=== PATIENT | female | born 1965 | race Two or more races ===

== ENCOUNTER → 2019-12-13 | Outpatient (CLI) | payer OTHER ==
[~2019-12-13] MED LIST: AMLO-150 PO; ATOR20TA37 PO; ESTRADIOL; METF500T17 PO
[2019-12-13 12:30] LABS: BASOPHILS # (AUTO) 0.03 x10^3/uL (0-0.1); BASOPHILS % (AUTO) 0 % (0-1); EOSINOPHILS # (AUTO) 0.14 x10^3/uL (0-0.4); EOSINOPHILS % (AUTO) 2 % (1-7); LYMPHOCYTES # (AUTO) 2.86 x10^3/uL (1-3.4); LYMPHOCYTES % (AUTO) 42 % (22-44); MD NO; MEAN CORPUSCULAR HEMOGLOBIN 30.6 pg (27.0-34.8); MEAN CORPUSCULAR HGB CONC 33.7 g/dL (32.4-35.8); MEAN CORPUSCULAR VOLUME 90.7 fL (80-100); MEAN PLATELET VOLUME 8.2 fL (7.4-10.4); MONOCYTES # (AUTO) 0.38 x10^3/uL (0.2-0.8); MONOCYTES % (AUTO) 6 % (2-9); NEUTROPHILS # (AUTO) 3.46 x10^3/uL (1.8-6.8); NEUTROPHILS % (AUTO) 50 % (42-75); PLATELET COUNT 313 x10^3/uL (130-400); RED BLOOD COUNT 4.53 x10^6/uL (3.82-5.3); RED CELL DISTRIBUTION WIDTH 12.9 % (9.6-15.2)
[2019-12-13 12:39] LABS: CHLORIDE 107 mmol/L (98-107)
[2019-12-13 12:56] LABS: ALANINE AMINOTRANSFERASE 19 U/L (12-78); ALBUMIN 4.2 g/dL (3.4-5.0); ALKALINE PHOSPHATASE 71 U/L (45-117); ANION GAP 5 mmol/L (5-15); BILIRUBIN,TOTAL 0.8 mg/dL (0.2-1.0); CALCIUM 9.3 mg/dL (8.5-10.1); CREATININE 0.63 mg/dL (0.55-1.02); TOTAL PROTEIN 7.9 g/dL (6.4-8.2)
== END | disposition home or self-care (01) ==
LOC: STAR 10:13
PROVIDERS: ATTEND Orthopaedic Surgery
DX: Z01.818 Encounter for other preprocedural examination (principal); M17.12 Unilateral primary osteoarthritis, left knee
CPT/HCPCS: 36415; 80053; 85025; 87081; 93005

== ENCOUNTER 2019-12-22 09:49 | Observation (INO) | payer OTHER ==
[~2019-12-22] VITALS: Ht 149.9 cm; Wt 66.4 kg
[~2019-12-22 09:49] MED LIST changes: +ACETAMINOPHEN 650 MG/20.3 ML UDC PO PRN; +BISACODYL 10 MG SUPP PR PRN; +DIPHENHYDRAMINE 25 MG CAPSULE PO PRN; +HYDROcodone/APAP 5/325 TABLET PO PRN; +MAGNESIUM HYDROXIDE 8%, 30ML UDC PO PRN; +ONDANSETRON 2MG/ML, 2ML IV PRN; +ONDANSETRON 4 MG TABLET PO PRN; +OXYcodone IR 5MG TABLET PO PRN; +SENNA/DOCUSATE TABLET PO PRN; +ZOLPIDEM 5MG TABLET PO PRN
[2019-12-22] MEDS ORDERED: CHLORHEXIDINE 15 ML UDC ONE (10:05)
[2019-12-22] MEDS ORDERED: FENTANYL PF 100 MCG/2ML ONE ×4 (10:07→13:00)
[2019-12-22] MEDS ORDERED: PROPOFOL 10 MG/ML, 20ML ONE (10:07)
[2019-12-22] MEDS ORDERED: ROPIvacaine/PF 0.5%, 30 ML ONE ×2 (10:08→10:37)
[2019-12-22] MEDS ORDERED: LIDOCAINE-MPF 2% ,5ML ONE (10:08)
[2019-12-22] MEDS ORDERED: LIDOCAINE-MPF 1%, 2ML ONE (10:10)
[2019-12-22] MEDS ORDERED: LIDOCAINE-MPF 1%, 2ML INFIL STA (10:10)
[2019-12-22] MEDS ORDERED: VANCOMYCIN 1,000 MG ONE (10:13)
[2019-12-22] MEDS ORDERED: SODIUM CHLORIDE 0.9% 50 ML ONE (10:13)
[2019-12-22] MEDS ORDERED: EPINEPHRINE 1 MG/ML, 1ML ONE (10:13)
[2019-12-22] MEDS ORDERED: ROPIvacaine/PF 0.2%, 20 ML ONE (10:13)
[2019-12-22] MEDS ORDERED: KETOROLAC 60 MG/2 ML ONE (10:13)
[2019-12-22] MEDS ORDERED: TRANEXAMIC ACID 100 MG/ML, 10ML ONE ×2 (10:13)
[2019-12-22] MEDS ORDERED: GABAPENTIN 300 MG CAPSULE ONE (10:16)
[2019-12-22] MEDS ORDERED: ACETAMINOPHEN 500 MG TABLET ONE (10:16)
[2019-12-22] MEDS ORDERED: CHLORHEXIDINE 15 ML UDC MM ONE (10:30)
[2019-12-22] MEDS ORDERED: ACETAMINOPHEN 500 MG TABLET PO ONE (10:30)
[2019-12-22] MEDS ORDERED: ROPIvacaine/PF 0.5%, 20 ML ONE (10:37)
[2019-12-22] MEDS ORDERED: EPHEDRINE 50 MG/ML, 1ML ONE (11:02)
[2019-12-22] MEDS ORDERED: ONDANSETRON 2MG/ML, 2ML ONE (11:02)
[2019-12-22] MEDS ORDERED: CEFAZOLIN 1,000 MG ONE ×2 (11:09)
[2019-12-22] MEDS ORDERED: DEXAMETHASONE 4 MG/ML, 1ML ONE ×2 (11:09)
[2019-12-22] MEDS ORDERED: OXYcodone 5 MG/5 ML ORAL.SOL UDC PO PRN (11:30)
[2019-12-22] MEDS ORDERED: ONDANSETRON 2MG/ML, 2ML IVPush PRN (11:30)
[2019-12-22] MEDS ORDERED: DIAZEPAM 5 MG/ML, 2ML IVPush PRN (11:30)
[2019-12-22] MEDS ORDERED: FENTANYL PF 100 MCG/2ML IV PRN (11:30)
[2019-12-22] MEDS ORDERED: GABAPENTIN 300 MG CAPSULE PO ONE (12:00)
[2019-12-22] MEDS ORDERED: LACTATED RINGERS 1,000 ML IV SCH (12:00)
[2019-12-22] MEDS ORDERED: OXYcodone 5 MG/5 ML ORAL.SOL UDC ONE (13:00)
[2019-12-22 13:30] VITALS: BP 135/75
[2019-12-22] MEDS: NS + 20MEQ KCL 1,000 ML IV SCH (16:11)
[2019-12-22] MEDS: CEFAZOLIN PMX 2GM/50ML 50 ML IVPB SCH ×2 (16:11→23:48)
[2019-12-22] MEDS: AMLODIPINE 5 MG TABLET PO SCH (16:32)
[2019-12-22] MEDS: metFORMIN 500 MG TABLET PO SCH (16:40)
[2019-12-22] MEDS: DOCUSATE 100 MG CAPSULE PO SCH ×2 (16:41→20:23)
[2019-12-22] MEDS: ASPIRIN 81 MG TABLET EC PO SCH (18:45)
[2019-12-22 19:32] VITALS: BP 116/64
[2019-12-22] MEDS ORDERED: ATORVASTATIN 20 MG TABLET PO SCH (21:00)
[2019-12-22 23:55] VITALS: BP 114/65
[2019-12-23 03:50] VITALS: BP 128/68
[2019-12-23] MEDS: NS + 20MEQ KCL 1,000 ML IV SCH (05:00)
[2019-12-23] MEDS: ASPIRIN 81 MG TABLET EC PO SCH (05:32)
[2019-12-23] MEDS: DOCUSATE 100 MG CAPSULE PO SCH (08:58)
[2019-12-23] MEDS: metFORMIN 500 MG TABLET PO SCH (08:58)
[2019-12-23] MEDS: AMLODIPINE 5 MG TABLET PO SCH (08:58)
[2019-12-23 09:00] VITALS: BP 146/84
[2019-12-23] MEDS ORDERED: OXYC5TAB3 PO (11:16)
[2019-12-23] MEDS ORDERED: ASPI81TA45 PO (11:17)
[2019-12-23] MEDS ORDERED: MELO7.5T31 PO (11:17)
[2019-12-23] MEDS ORDERED: TRAM50TA2 PO (11:17)
== END 2019-12-23 12:30 | disposition home or self-care (01) ==
LOC: OUT 09:49 → 4NE 13:32 → OUT 20:50 → 4NE 20:50 → DCLOUNGE 12-23 12:15
PROVIDERS: ADMIT Orthopaedic Surgery; ATTEND Orthopaedic Surgery
DX: M17.12 Unilateral primary osteoarthritis, left knee (principal); Z20.828 Contact with and (suspected) exposure to other viral communicable diseases; E11.9 Type 2 diabetes mellitus without complications; J45.909 Unspecified asthma, uncomplicated; I10 Essential (primary) hypertension; E78.5 Hyperlipidemia, unspecified; I48.91 Unspecified atrial fibrillation; K21.9 Gastro-esophageal reflux disease without esophagitis; Z79.899 Other long term (current) drug therapy
CPT/HCPCS: 27447; 36415; 82962; 85014; 85018; 87635; 96365; 96366; 97110; 97161; 97165; C1713; C1776; G0378; J0171; J0690; J1100; J1885; J2405; J2704; J2795; J3010; J3370; J3480; J3490